=== PATIENT | female | born 1940 | race Caucasian/White ===

== ENCOUNTER 2016-12-12 15:24 | Observation (INO) | payer OTHER ==
[2016-12-12 15:31] VITALS: BMI 34.7
--- NOTE | 2016-12-12 15:49 | PDOC ---
History of Present Illness - History of Present Illness Initial Comments: 12/12/16 16:23 The patient is a 76 year old female, [place] speaking, with a significant past medical history of hypertension, GERD, migraines, and depression who presents to the emergency department with daughters for 10 days of persistent fevers ( Tmax 103.8 today), productive cough, dyspnea, and generalized weakness. She reports her cough is productive of white sputum. As per the patients nurse aide , the patient fainted and lost consciousness in the bathroom today. As per the patients daughters, she has been wearing diapers this week because the patient reports being unable to control her bladder when she coughs. The patients family also reports hematuria, but states she has been drinking a lot of beet juice. The patient reports feeling short of breath after coughing. She also states her entire body feels weak to the point where she can hardly move her extremities. She states she was diagnosed with bronchitis 2 weeks ago. She reports good appetite. She reports drinking plenty of fluids. She denies chest pain, headache and dizziness. She denies chills, nausea, vomit, diarrhea and constipation. She denies dysuria, frequency, urgency. Allergies: codeine Past surgical history: bilateral knee replacement Social history: Pt denies toxic habits <Nighat Kapoor - Last Filed: 12/12/16 16:23> - General History Source: Patient, Family Exam Limitations: No Limitations <Simona Estes - Last Filed: 12/12/16 18:41> - General Chief Complaint: Weakness Stated Complaint: NEAR SYNCOPE, FEVER, weakness Time Seen by Provider: 12/12/16 15:37 Past History <Nighat Kapoor - Last Filed: 12/12/16 16:23> - Past Medical History Anemia: No Asthma: No Cancer: No Cardiac Disorders: No CVA: No COPD: No CHF: No Dementia: No Diabetes: No GI Disorders: Yes (acid reflux) Disorders: No HTN: Yes Hypercholesterolemia: No HIV: Yes Liver Disease: No Suicide Attempt (Hx): No Seizures: No Thyroid Disease: No - Surgical History Abdominal Surgery: No Appendectomy: No Cardiac Surgery: No Cholecystectomy: No Lung Surgery: No Neurologic Surgery: No Orthopedic Surgery: Yes (bilateral knee replacement) - Immunization History Immunization Up to Date: Yes - Psycho/Social/Smoking Cessation Hx Anxiety: No Suicidal Ideation: No Smoking History: Never smoked Have you smoked in the past 12 months: No If you are a former smoker, when did you quit?: 1980 Information on smoking cessation initiated: No Hx Alcohol Use: No Drug/Substance Use Hx: No Substance Use Type: None Hx Substance Use Treatment: No <FranklynSimona - Last Filed: 12/12/16 18:41> - Past Medical History Allergies/Adverse Reactions: Allergies Allergy/AdvReac Type Severity Reaction Status Date / Time codeine Allergy Verified 12/12/16 15:31 Home Medications: Ambulatory Orders Losartan/Hydrochlorothiazide [Losartan-Hctz 100-25 mg Tab] 1 each PO DAILY 11/05 Acetaminophen [Extra Strength Non-Aspirin] 500 mg PO Q4HWA PRN 12/12/16 Aspirin [Aspirin EC] 81 mg PO DAILY 12/12/16 Celecoxib [Celebrex -] 200 mg PO PRN 12/12/16 Ibuprofen [Motrin -] 400 mg PO QID PRN 12/12/16 Review of Systems - Review of Systems Able to Perform ROS?: Yes Comments:: 12/12/16 16:23 CONSTITUTIONAL: (+) diffuse body weakness and fever, Absent: no chills, no fatigue EYES: Absent: visual changes ENT: Absent: ear pain, no sore throat CARDIOVASCULAR: Absent: chest pain, no palpitations RESPIRATORY: (+) cough, SOB GASTROINTESTINAL: Absent: abdominal pain, no nausea, no vomiting, no constipation, no diarrhea GENITOURINARY: (+) hematuria Absent: dysuria, no frequency, MUSCULOSKELETAL: Absent: back pain, no arthralgia, no myalgia SKIN: Absent: rash NEURO: Absent: headache <Nighat Kapoor - Last Filed: 12/12/16 16:23> *Physical Exam - Vital Signs Last Vital Signs Temp Pulse Resp BP Pulse Ox 98.5 F 85 18 124/71 98 12/12/16 15:29 12/12/16 15:29 12/12/16 15:29 12/12/16 15:29 12/12/16 15:29 - Physical Exam Comments: 12/12/16 16:24 GENERAL: The patient is in no acute distress. HEAD: Normal with no signs of trauma. EYES: PERRLA, EOMI, sclera anicteric, conjunctiva clear. ENT: Ears normal, nares patent, oropharynx clear without exudates. Moist mucous membranes. NECK: Normal range of motion, supple without lymphadenopathy, JVD, or masses. LUNGS: Breath sounds equal, clear to auscultation bilaterally. No wheezes, and no crackles. HEART:Regular rate and rhythm, normal S1 and S2 without murmur, rub or gallop. ABDOMEN: Soft, nontender, normoactive bowel sounds. No guarding, no rebound. No masses palpable. EXTREMITIES: Normal range of motion, no edema. No clubbing or cyanosis. No erythema, or tenderness. NEUROLOGICAL: Cranial nerves II through XII grossly intact. Normal speech. No focal neurological deficits. MUSCULOSKELETAL: Back non-tender to palpation, no CVA tenderness SKIN: Warm, Dry, normal turgor, no rashes or lesions noted. <Nighat Kapoor - Last Filed: 12/12/16 16:23> - Vital Signs Last Vital Signs Temp Pulse Resp BP Pulse Ox 98.5 F 85 18 124/71 98 12/12/16 15:29 12/12/16 15:29 12/12/16 15:29 12/12/16 15:29 12/12/16 15:29 <Simona Estes - Last Filed: 12/12/16 18:41> Heart Score/ECG Review #1 ECG reviewed & interpreted by me at: 16:48 General ECG Interpretation: Sinus Rhythm, Normal Rate, Normal Intervals, No acute ischemic changes <Simona Estes - Last Filed: 12/12/16 18:41> ED Treatment Course - LABORATORY CBC & Chemistry Diagram: 12/12/16 16:54 12/12/16 16:54 <Simona Estes - Last Filed: 12/12/16 18:41> Medical Decision Making - Medical Decision Making 12/12/16 15:49 A portion of this note was documented by scribe services under my direction. I have reviewed the details of the note, within reason, and agree with the documentation with the following case summary and management plan written by me. Nursing documentation reviewed and incorporated into medical decision making 12/12/16 18:34 This is a 76 yo F with a history of HTN presenting with her family due to cough , weakness Pt has been ill for the past 10 days Was seen by her PMD who did not start abx Pt has had temps of 103 intermittently Unable to tolerate po No vomiting No diarrhea No abdominal pain chest pain with coughing On examination: No wheezing No stridor No rhonchi RRR No abd tenderness to palpation Will do labs Will do CXR Will re assess 12/12/16 18:40 Laboratory Tests 03/18/16 12/12/16 12/12/16 19:52 16:54 16:54 WBC 4.0 4.9 Hgb 10.8 10.4 L Hct 31.9 L 31.0 L Plt Count 202 218 INR 1.11 VBG pH POC VBG pCO2 POC VBG pO2 Mixed VBG HCO3 Sodium Potassium Chloride Carbon Dioxide Anion Gap BUN Creatinine Random Glucose Alkaline Phosphatase Creatine Kinase CK-MB (CK-2) Troponin I 12/12/16 12/12/16 16:54 17:00 WBC Hgb Hct Plt Count INR VBG pH 7.40 POC VBG pCO2 48.0 POC VBG pO2 52.3 H Mixed VBG HCO3 29.0 H Sodium 128 L Potassium 4.4 Chloride 91 L Carbon Dioxide 32 Anion Gap 5 L BUN 22 H D Creatinine 0.8 Random Glucose 81 D Alkaline Phosphatase 135 H Creatine Kinase 298 H D CK-MB (CK-2) 2.940 Troponin I < 0.02 CXR: no obvious consolidation Will continue IV hydration Saline neb given pt did not tolerate this as it made her chest more tight Pt family requesting Albuterol neb Case reviewed with Dr. Gomez Will place on observation <Simona Estes - Last Filed: 12/12/16 18:41> *DC/Admit/Observation/Transfer - Attestations Scribe Attestion: 12/12/16 16:24 Documentation prepared by Nighat Kapoor, acting as medical educator for Simona Estes MD <Nighat Kapoor - Last Filed: 12/12/16 16:23> - Discharge Dispostion Admit: Yes <Simona Estes - Last Filed: 12/12/16 18:41> Diagnosis at time of Disposition: Weakness, Hyponatremia Fever Qualifiers: Fever type: due to other condition Qualified Code(s): R50.81 - Fever presenting with conditions classified elsewhere - Discharge Dispostion Condition at time of disposition: Stable
[2016-12-12 17:16] LABS: VENOUS PH 7.4 (7.32-7.42)
[2016-12-12 17:17] LABS: BASOPHIL 0.5 % (0-2.0); EOSINOPHIL 3.6 % (0-4.5); MCH 30.2 pg (25.7-33.7); MCHC 33.5 g/dl (32.0-36.0); MEAN CELL VOLUME 90.1 fl (80-96); MEAN PLT VOLUME 7.3 fl (7.5-11.1); NEUTROPHILS 63.6 % (42.8-82.8); PLATELET COUNT 218 K/MM3 (134-434); RDW 14.9 % (11.6-15.6); WHITE BLOOD COUNT 4.9 K/mm3 (4.0-10.0)
[2016-12-12 17:25] LABS: INR 1.11 (0.82-1.09); PROTHROMBIN TIME (PATIENT) 12.2 SEC (9.98-11.88)
[2016-12-12 17:27] LABS: ACTIVATED PTT 34.9 SECONDS (26.9-34.4)
[2016-12-12 17:37] LABS: ALBUMIN 3.6 g/dl (3.4-5.0); ANION GAP 5 (8-16); BILIRUBIN,TOTAL 0.3 mg/dL (0.2-1.0); CALCIUM 8.5 mg/dL (8.5-10.1); CO2 32 mmol/L (21-32); CREATININE 0.8 mg/dL (0.55-1.02); GLUCOSE,RANDOM 81 mg/dL (74-106); SGOT/AST 27 U/L (15-37); SGPT/ALT 21 U/L (12-78); TOT PROT 7.2 g/dl (6.4-8.2)
[2016-12-12 17:40] LABS: ALK PHOS 135 U/L (45-117); TROPONIN I < 0.02 ng/ml (0.00-0.05)
[2016-12-12] MEDS ORDERED: ALBUTEROL SO4 0.083% IH SOL 2.5 MG/3 ML VIAL.NEB. NEB ONE ×2 (17:59→18:29)
[2016-12-12] MEDS ORDERED: SODIUM CHLORIDE 1,000 ML IV ONE (19:18)
[2016-12-12] MEDS ORDERED: SODIUM CHLORIDE 1,000 ML IV STA (19:19)
[2016-12-12 19:31] LABS: URINE APPEARANCE CLEAR; URINE BILIRUBIN NEGATIVE (NEGATIVE); URINE BLOOD NEGATIVE (NEGATIVE); URINE COLOR LTYELLOW; URINE GLUCOSE (UA) NEGATIVE (NEGATIVE); URINE KETONE NEGATIVE (NEGATIVE); URINE LEUK ESTERASE NEGATIVE (NEGATIVE); URINE NITRITE NEGATIVE (NEGATIVE); URINE PROTEIN NEGATIVE (NEGATIVE); URINE UROBILINOGEN NEGATIVE E.U./dl (0.2-1.0)
--- NOTE | 2016-12-12 21:03 | HP ---
CHIEF COMPLAINT: fever, cough PCP: Luigi HISTORY OF PRESENT ILLNESS: This is a 76 year old female with a past medical history of HTN, migraines, depression, hiatal hernia who presented with a 10 day history of fever associated with productive cough (white phlegm), dyspnea and generalized weakness. Pt denies chest pain, abdominal pain, nausea and vomiting. Reports some constipation. Daughter reports that mother has migraines almost daily and takes fiorecet daily for them. Pt denies any headache at present. ER course was notable for: (1) WBC 4.9 (2) sodium 128 Recent Travel: pt denies PAST MEDICAL HISTORY: HTN migraines depression hiatal hernia PAST SURGICAL HISTORY: R TKR Social History: Smoking: Pt denies Alcohol: pt denies Drugs: pt denies Family History: Mother age 75 "Heart" Father age 76 "heart" sister with DM daughter with DM, HTN daughter with HTN son , cirrhosis-"bad injection" Allergies codeine Allergy (Verified 12/12/16 15:31) HOME MEDICATIONS: 3 Medication Instructions Recorded Losartan/Hydrochlorothiazide 1 each PO DAILY 11/05/14 [Losartan-Hctz 100-25 mg Tab] Acetaminophen [Extra Strength 500 mg PO Q4HWA PRN 12/12/16 Non-Aspirin] Aspirin [Aspirin EC] 81 mg PO DAILY 12/12/16 Celecoxib [Celebrex -] 200 mg PO PRN 12/12/16 Ibuprofen [Motrin -] 400 mg PO QID PRN 12/12/16 Omeprazole 20mg daily REVIEW OF SYSTEMS CONSTITUTIONAL: Present: fever, generalized weakness Absent: chills, diaphoresis, malaise, loss of appetite, weight change HEENT: Absent: rhinorrhea, nasal congestion, throat pain, throat swelling, difficulty swallowing, mouth swelling, ear pain, eye pain, visual changes CARDIOVASCULAR: Absent: chest pain, syncope, palpitations, irregular heart rate, lightheadedness , peripheral edema RESPIRATORY: Present: cough, shortness of breath Absent: wheezing, stridor, hemoptysis GASTROINTESTINAL: Absent: abdominal pain, abdominal distension, nausea, vomiting, diarrhea, constipation, melena, hematochezia GENITOURINARY: Absent: dysuria, frequency, urgency, hesitancy, hematuria, flank pain, genital pain MUSCULOSKELETAL: Absent: myalgia, arthralgia, joint swelling, back pain, neck pain SKIN: Absent: rash, itching, pallor HEMATOLOGIC/IMMUNOLOGIC: Absent: easy bleeding, easy bruising, lymphadenopathy, frequent infections ENDOCRINE: Absent: unexplained weight gain, unexplained weight loss, heat intolerance, cold intolerance NEUROLOGIC: Absent: headache, focal weakness or paresthesias, dizziness, unsteady gait, seizure, mental status changes, bladder or bowel incontinence PSYCHIATRIC: Absent: anxiety, depression, suicidal or homicidal ideation, hallucinations. PHYSICAL EXAMINATION Vital Signs - 24 hr 3 12/12/16 12/12/16 12/12/16 15:29 18:41 19:24 Temperature 98.5 F 98.3 F 98 F Pulse Rate 85 90 Pulse Rate [ 87 Left] Respiratory 18 18 17 Rate Blood Pressure 124/71 122/58 Blood Pressure 130/88 [Left Arm] O2 Sat by Pulse 98 98 98 Oximetry (%) GENERAL: Awake, alert, and fully oriented, in no acute distress. HEAD: Normal with no signs of trauma. EYES: Pupils equal, round and reactive to light, extraocular movements intact, sclera anicteric, conjunctiva clear. No lid lag. EARS, NOSE, THROAT: Ears normal, nares patent, oropharynx clear without exudates. Moist mucous membranes. NECK: Normal range of motion, supple without lymphadenopathy, JVD, or masses. LUNGS: Breath sounds equal, clear to auscultation bilaterally. No wheezes, and no crackles. No accessory muscle use. HEART: Regular rate and rhythm, normal S1 and S2 without murmur, rub or gallop. ABDOMEN: Soft, nontender, not distended, normoactive bowel sounds, no guarding, no rebound, no masses. No hepatomegaly or splenomegaly. MUSCULOSKELETAL: Normal range of motion at all joints. No bony deformities or tenderness. No CVA tenderness. UPPER EXTREMITIES: 2+ pulses, warm, well-perfused. No cyanosis. No clubbing. No peripheral edema. LOWER EXTREMITIES: 2+ pulses, warm, well-perfused. No calf tenderness. No peripheral edema. NEUROLOGICAL: Cranial nerves II-XII intact. Normal speech. Normal gait. PSYCHIATRIC: Cooperative. Good eye contact. Appropriate mood and affect. SKIN: Warm, dry, normal turgor, no rashes or lesions noted, normal capillary refill. Laboratory Results - last 24 hr 3 12/12/16 12/12/16 12/12/16 12/12/16 16:49 16:54 16:54 20:00 WBC 4.9 RBC 3.44 L Hgb 10.4 L Hct 31.0 L MCV 90.1 MCHC 33.5 RDW 14.9 Plt Count 218 MPV 7.3 L Neutrophils % 63.6 Lymphocytes % 18.1 D Monocytes % 14.2 H Eosinophils % 3.6 Basophils % 0.5 INR 1.11 PTT (Actin FS) 34.9 H VBG pH POC VBG pCO2 POC VBG pO2 Mixed VBG HCO3 Sodium Potassium Chloride Carbon Dioxide Anion Gap BUN Creatinine Creat Clearance w eGFR Random Glucose Lactic Acid 0.7 0.8 Calcium Total Bilirubin AST ALT Alkaline Phosphatase Creatine Kinase CK-MB (CK-2) Troponin I Total Protein Albumin Urine Color Urine Appearance Urine pH Urine Protein Urine Glucose (UA) Urine Ketones Urine Blood Urine Nitrite Urine Bilirubin Urine Urobilinogen Ur Leukocyte Esterase Blood Type Antibody Screen 3 12/12/16 12/12/16 12/12/16 16:54 16:55 17:00 WBC RBC Hgb Hct MCV MCHC RDW Plt Count MPV Neutrophils % Lymphocytes % Monocytes % Eosinophils % Basophils % INR PTT (Actin FS) VBG pH 7.40 POC VBG pCO2 48.0 POC VBG pO2 52.3 H Mixed VBG HCO3 29.0 H Sodium 128 L Potassium 4.4 Chloride 91 L Carbon Dioxide 32 Anion Gap 5 L BUN 22 H D Creatinine 0.8 Creat Clearance w eGFR > 60 Random Glucose 81 D Lactic Acid Calcium 8.5 Total Bilirubin 0.3 D AST 27 D ALT 21 D Alkaline Phosphatase 135 H Creatine Kinase 298 H D CK-MB (CK-2) 2.940 Troponin I < 0.02 Total Protein 7.2 Albumin 3.6 Urine Color Urine Appearance Urine pH Urine Protein Urine Glucose (UA) Urine Ketones Urine Blood Urine Nitrite Urine Bilirubin Urine Urobilinogen Ur Leukocyte Esterase Blood Type O POSITIVE Antibody Screen Negative 3 12/12/16 12/12/16 19:24 20:00 Lactic Acid 0.8 Urine Color Ltyellow Urine Appearance Clear Urine pH 7.0 Urine Protein Negative Urine Glucose (UA) Negative Urine Ketones Negative Urine Blood Negative Urine Nitrite Negative Urine Bilirubin Negative Urine Urobilinogen Negative Ur Leukocyte Esterase Negative CXR read by me, no obvious infiltrates or effusions. ASSESSMENT/PLAN: 76yF with PMH HTN, migraines, depression, hiatal hernia presented to the ED with a 10 day history of cough and fever. She was found to be hyponatremic and is being admitted for observation. bronchitis - prolonged course, but no obvious pneumonia on xray - will treat with zithromax - albuterol nebs PRN. - if fever persists would get CT scan Hyponatremia - likely due to hypovolemia as pt has not been eating or drinking well. - cont NS@100cc/hr HTN - cont home hyzaar, changed to formulary losartan and hydrochlorothiazide separately. hiatal hernia - home omeprazole changed to formulary protonix Migraine - dc fiorecet, monitor for acute migraine and tx with ketorolac, benadryl and reglan - family given contact info for neurology as outpatient DVT PPX - not indicated, expected LOS <48h FEN - NS @ 100cc/hr - repeat BMP at 12am. - low sodium diet as tolerated Dispo: Pt currently requires inpatient observation of her emergent condition. Visit type - Emergency Visit Emergency Visit: Yes ED Registration Date: 12/12/16 Care time: The patient presented to the Emergency Department on the above date and was hospitalized for further evaluation of their emergent condition. - New Patient This patient is new to me today: Yes Date on this admission: 12/12/16 - Critical Care Critical Care patient: No
[2016-12-12] MEDS ORDERED: AZITHROMYCIN IVPB 250 ML IVPB ONE (21:33)
[2016-12-12] MEDS: POLYETHYLENE GLYCOL 3350 119 GM BTL PO SCH (21:52)
[2016-12-12] MEDS ORDERED: ALBUTEROL SO4 0.083% IH SOL 2.5 MG/3 ML VIAL.NEB. NEB PRN (22:12)
[2016-12-12] MEDS: SODIUM CHLORIDE 1,000 ML IV SCH (22:43)
[2016-12-13] MEDS: guaiFENesin 200 MG/10 ML 10 ML UNIT-DOSE CUPS PO PRN ×2 (00:04→08:30)
[2016-12-13 06:54] LABS: BASOPHIL 0.4 % (0-2.0); EOSINOPHIL 3.9 % (0-4.5); MCH 30.7 pg (25.7-33.7); MEAN CELL VOLUME 90.5 fl (80-96); MEAN PLT VOLUME 6.9 fl (7.5-11.1); NEUTROPHILS 62.2 % (42.8-82.8); PLATELET COUNT 186 K/MM3 (134-434); RDW 14.8 % (11.6-15.6); WHITE BLOOD COUNT 4.9 K/mm3 (4.0-10.0)
[2016-12-13 07:20] LABS: ANION GAP 6 (8-16); CO2 32 mmol/L (21-32); CREATININE 0.7 mg/dL (0.55-1.02); GLUCOSE,RANDOM 97 mg/dL (74-106); MAGNESIUM 1.9 mg/dL (1.8-2.4); PHOSPHOROUS 3.3 mg/dL (2.5-4.9)
[2016-12-13] MEDS ORDERED: PATIENT'S OWN MEDICATION (NON-FORMULARY) (Losartan/Hydrochlorothiazide [Losartan-Hctz 100- PO SCH (10:00)
[2016-12-13] MEDS: SODIUM CHLORIDE 1,000 ML IV SCH ×2 (10:25→22:51)
[2016-12-13] MEDS: PANTOPRAZOLE 20 MG TABLET (FP) PO SCH (10:26)
[2016-12-13] MEDS: ASPIRIN COATED 81 MG TABLET.EC PO SCH (10:26)
[2016-12-13] MEDS: LOSARTAN POTASSIUM 50 MG TABLET (FP) PO SCH (10:26)
[2016-12-13] MEDS: HYDROCHLOROTHIAZIDE 25 MG TABLET (FP) PO SCH (10:26)
[2016-12-13] MEDS: POLYETHYLENE GLYCOL 3350 119 GM BTL PO SCH (10:26)
--- NOTE | 2016-12-13 10:42 | EKG ---
Test Reason : Blood Pressure : / mmHG Vent. Rate : 074 BPM Atrial Rate : 074 BPM P-R Int : 148 ms QRS Dur : 076 ms QT Int : 378 ms P-R-T Axes : 063 033 049 degrees QTc Int : 419 ms POOR DATA QUALITY, INTERPRETATION MAY BE ADVERSELY AFFECTED NORMAL SINUS RHYTHM NORMAL ECG WHEN COMPARED WITH ECG OF 18-MAR-2016 21:52, NO SIGNIFICANT CHANGE WAS FOUND Confirmed by EMIGDIO SALTER, REYNALDO ([id number]) on 12/13/2016 10:42:26 AM Referred By: Confirmed By:REYNALDO BEAL MD
[2016-12-13] MEDS ORDERED: DOCUSATE SODIUM 100 MG CAPSULE (FP) PO ONE (17:16)
[2016-12-13] MEDS ORDERED: ACETAMINOPHEN 325 MG TABLET (FP) PO PRN (17:17)
[2016-12-13] MEDS ORDERED: CELECOXIB 200 MG CAPSULE PO SCH (17:30)
--- NOTE | 2016-12-13 17:56 | PN ---
Physical Exam: SUBJECTIVE: Patient seen and examined at the bedside. States she has been feeling very weak, depressed at home since the passing of her 3 years ago. She states she is not motivated to do anything at home since she is used to only caring for him. She denies any suicidal ideation, just depressed and feels lost. She admits to not eating or drinking enough fluids. OBJECTIVE: Chronic dry cough, otherwise appears well Vitals stable, afebrile, in no acute distress Hyponatremia improving Likely discharge tomorrow, patient aware and in agreement She will need follow up for her depressed mood by an outpatient psychiatrist that can be referred by her PCP Will check TSH and iron studies as hmg slightly low Will have PT evluate patient, pre and post respiratory prior to d/c Daughter Bonnie called to update on her mother's status, no voice mail left by science writer, will attempt tomorrow Vital Signs Period Temp Pulse Resp BP Sys/Briceno Pulse Ox Last 24 Hr 98 F-98.9 F 73-90 17-22 119-140/55-88 98-99 GENERAL: The patient is awake, alert, and fully oriented, in no acute distress. HEAD: Normal with no signs of trauma. EYES: PERRL, extraocular movements intact, sclera anicteric, conjunctiva clear. No ptosis. ENT: Ears normal, nares patent, oropharynx clear without exudates, moist mucous membranes. NECK: Trachea midline, full range of motion, supple. LUNGS: Breath sounds equal, diminished, no wheezing, has chronid dry cough HEART: Regular rate and rhythm, S1, S2 without murmur, rub or gallop. ABDOMEN: Soft, nontender, nondistended, normoactive bowel sounds, no guarding, no rebound, no hepatosplenomegaly, no masses. EXTREMITIES: 2+ pulses, warm, well-perfused, no edema. NEUROLOGICAL: Normal speech, gait not observed. PSYCH: Normal mood, normal affect. SKIN: Warm, dry, normal turgor, no rashes or lesions noted Laboratory Results - last 24 hr 12/12/16 12/12/16 12/12/16 19:24 20:00 21:15 WBC RBC Hgb Hct MCV MCHC RDW Plt Count MPV Neutrophils % Lymphocytes % Monocytes % Eosinophils % Basophils % Sodium Potassium Chloride Carbon Dioxide Anion Gap BUN Creatinine Random Glucose Lactic Acid 0.8 Calcium Phosphorus Magnesium Urine Color Ltyellow Urine Appearance Clear Urine pH 7.0 Ur Specific [place] 1.015 Urine Protein Negative Urine Glucose (UA) Negative Urine Ketones Negative Urine Blood Negative Urine Nitrite Negative Urine Bilirubin Negative Urine Urobilinogen Negative Ur Leukocyte Esterase Negative Blood Type O POSITIVE 12/13/16 12/13/16 05:35 05:35 WBC 4.9 RBC 3.11 L Hgb 9.6 L Hct 28.2 L MCV 90.5 MCHC 34.0 RDW 14.8 Plt Count 186 MPV 6.9 L Neutrophils % 62.2 Lymphocytes % 19.3 Monocytes % 14.2 H Eosinophils % 3.9 Basophils % 0.4 Sodium 132 L Potassium 4.5 Chloride 94 L Carbon Dioxide 32 Anion Gap 6 L BUN 14 D Creatinine 0.7 Random Glucose 97 Lactic Acid Calcium 8.0 L Phosphorus 3.3 D Magnesium 1.9 Urine Color Urine Appearance Urine pH Ur Specific [place] Urine Protein Urine Glucose (UA) Urine Ketones Urine Blood Urine Nitrite Urine Bilirubin Urine Urobilinogen Ur Leukocyte Esterase Blood Type Active Medications Generic Name Dose Route Start Last Admin Trade Name Freq PRN Reason Stop Dose Admin Acetaminophen 650 mg 12/13/16 17:17 Tylenol - PO Q4H PRN FEVER OR PAIN Albuterol Sulfate 1 amp 12/12/16 22:12 Ventolin 0.083% Nebulizer Soln - NEB Q6H PRN SHORT OF BREATH/WHEEZING Aspirin 81 mg 12/13/16 10:00 12/13/16 10:26 Ecotrin - PO 81 mg DAILY WILLIAM Administration Celecoxib 200 mg 12/13/16 17:30 Celebrex - PO PRN WILLIAM Docusate Sodium 100 mg 12/13/16 22:00 Colace - PO BID WILLIAM Guaifenesin 10 ml 12/12/16 23:35 12/13/16 08:30 Robitussin - PO 10 ml Q4H PRN Administration COUGH Hydrochlorothiazide 25 mg 12/13/16 10:00 12/13/16 10:26 Hctz - PO 25 mg DAILY WILLIAM Administration Sodium Chloride 1,000 mls @ 100 mls/hr 12/12/16 22:15 12/13/16 10:25 Normal Saline - IV 100 mls/hr ASDIR WILLIAM Administration Losartan Potassium 100 mg 12/13/16 10:00 12/13/16 10:26 Cozaar - PO 100 mg DAILY WILLIAM Administration Pantoprazole Sodium 20 mg 12/13/16 10:00 12/13/16 10:26 Protonix - PO 20 mg DAILY WILLIAM Administration Polyethylene Glycol 17 gm 12/12/16 21:00 12/13/16 10:26 Miralax (For Daily Use) - PO 17 grams DAILY WILLIAM Administration ASSESSMENT/PLAN: Patient is a 76 year old female with a significant past medical history of hypertension, GERD, migraines, and depression who presents to the emergency department on 12/12/2016 for 10 days of subjective persistent fevers of 103F with a productive cough, dyspnea, and generalized weakness. On admission, patient states that her cough is productive of white sputum. As per ED notes, patient had an episode of weakness where she reportedly fainted and lost consciousness in the bathroom. In the ER she was found to be hyponatremic @128 Imaging: Chest xray 12/12/2016: No acute pathology since study of 03/18/2016. EKG 12/12/2016: NSR with no significant changes since previous EKG of 03/16/2017 Pulmonary: Bronchitis - acute Assessment/Plan: Patient had a dry cough on exam, chest xray shows no acute pathology She remains afebrile, WBC stable She was given Azithomax 500mg IV x 1 on admission Will convert to Zithromax 500mg PO Tolerating room air, no dyspnea on exam, stable oxygen sats on room air Albuterol as needed, but she is not wheezing Monitor respiratory status Cardiology: Hypertension - controlled Assessment/Plan: Continue home medications Electrolyte Imbalance Hyponatremia - improving Assessment/Plan: Patient reports depression with a poor PO intake NA today 132, improving with IVF, continue IVF and repeat CMP in a.m. Neuro: Migraines - chronic Assessment/Plan: follow up with neurology as outpatient F.E.N. Fluids: NS @100cc/hr Electrolytes: hyponatremia resolving Nutrition: low sodium, will add Ensure supplements Disposition: Likely discharge tomorrow. Full Code. Visit type - Emergency Visit Emergency Visit: Yes ED Registration Date: 12/12/16 Care time: The patient presented to the Emergency Department on the above date and was hospitalized for further evaluation of their emergent condition. - New Patient This patient is new to me today: Yes Date on this admission: 12/13/16 - Critical Care Critical Care patient: No - Discharge Referral Referred to [facility] No
[2016-12-13] MEDS: AZITHROMYCIN 250 MG TABLET (FP) PO SCH (18:41)
[2016-12-13] MEDS: DOCUSATE SODIUM 100 MG CAPSULE (FP) PO SCH (21:38)
[2016-12-14 07:37] LABS: BASOPHIL 0.9 % (0-2.0); EOSINOPHIL 2.9 % (0-4.5); MCH 30.7 pg (25.7-33.7); MCHC 33.6 g/dl (32.0-36.0); MEAN CELL VOLUME 91.4 fl (80-96); MEAN PLT VOLUME 7.4 fl (7.5-11.1); NEUTROPHILS 69.1 % (42.8-82.8); PLATELET COUNT 217 K/MM3 (134-434); RDW 14.7 % (11.6-15.6); WHITE BLOOD COUNT 5.1 K/mm3 (4.0-10.0)
[2016-12-14 08:47] LABS: ALBUMIN 3.7 g/dl (3.4-5.0); ALK PHOS 132 U/L (45-117); ANION GAP 8 (8-16); BILIRUBIN,TOTAL 0.4 mg/dL (0.2-1.0); CALCIUM 8.8 mg/dL (8.5-10.1); CO2 28 mmol/L (21-32); CREATININE 0.6 mg/dL (0.55-1.02); GLUCOSE,RANDOM 96 mg/dL (74-106); SGOT/AST 29 U/L (15-37); SGPT/ALT 23 U/L (12-78); THYROID STIMULATING HORMONE 1.57 uIU/ml (0.358-3.74); TOT PROT 7.4 g/dl (6.4-8.2)
[2016-12-14] MEDS: SODIUM CHLORIDE 1,000 ML IV SCH (08:52)
[2016-12-14] MEDS ORDERED: MULTIVITAMINS (DAILY MVI) TABLET (FP) PO SCH (10:00)
[2016-12-14] MEDS ORDERED: FERROUS SO4 325 MG TABLET (FP) PO SCH (10:00)
[2016-12-14] MEDS ORDERED: PT OWN MED DRAWER 7, Y5N ONE (10:31)
[2016-12-14] MEDS: AZITHROMYCIN 250 MG TABLET (FP) PO SCH (10:32)
[2016-12-14] MEDS: LOSARTAN POTASSIUM 50 MG TABLET (FP) PO SCH (10:33)
[2016-12-14] MEDS: PANTOPRAZOLE 20 MG TABLET (FP) PO SCH (10:33)
[2016-12-14] MEDS: HYDROCHLOROTHIAZIDE 25 MG TABLET (FP) PO SCH (10:33)
[2016-12-14] MEDS: DOCUSATE SODIUM 100 MG CAPSULE (FP) PO SCH (10:33)
[2016-12-14] MEDS: ASPIRIN COATED 81 MG TABLET.EC PO SCH (10:33)
[2016-12-14] MEDS: POLYETHYLENE GLYCOL 3350 119 GM BTL PO SCH (10:34)
--- NOTE | 2016-12-14 11:01 | DS ---
Physical Exam: SUBJECTIVE: Patient seen and examined. She states she had a very large BM last night and feels better. She denies any shortness of breath, or chest pain. She is ambulating in room with cane, steady gait. Denies shortness of breath. OBJECTIVE: Chronic dry cough, otherwise appears well Vitals stable, afebrile, in no acute distress Hyponatremia improving 128>133 Discharge today. Spoke to patient's daughter Bonnie and made her aware of discharge plan. Patient has an appointment with her PCP Dr. Fox Meyers on December 19 @ 11:30. I spoke to lime filter operator Katie and asked her to make Dr. Meyers aware that patient may need a psychologist referral for depression after of her 3 years ago. TSH within normal limits, hmg/hmt stable, B12 levels elevated Vital Signs Period Temp Pulse Resp BP Sys/Briceno Pulse Ox Last 24 Hr 98.0 F-98.9 F 73-82 18-29 123-142/55-75 PHYSICAL EXAM GENERAL: The patient is awake, alert, and fully oriented, in no acute distress. HEAD: Normal with no signs of trauma. EYES: PERRL, extraocular movements intact, sclera anicteric, conjunctiva clear. No ptosis. ENT: Ears normal, nares patent, oropharynx clear without exudates, moist mucous membranes. NECK: Trachea midline, full range of motion, supple. LUNGS: Breath sounds equal, diminished, no wheezing, has chronic dry cough HEART: Regular rate and rhythm, S1, S2 without murmur, rub or gallop. ABDOMEN: Soft, nontender, nondistended, normoactive bowel sounds, no guarding, no rebound, no hepatosplenomegaly, no masses. EXTREMITIES: 2+ pulses, warm, well-perfused, no edema. NEUROLOGICAL: Normal speech, gait not observed. PSYCH: Normal mood, normal affect. SKIN: Warm, dry, normal turgor, no rashes or lesions noted LABS Laboratory Results - last 24 hr 12/14/16 12/14/16 12/14/16 06:10 06:10 06:10 WBC 5.1 RBC 3.55 L Hgb 10.9 D Hct 32.5 D MCV 91.4 MCHC 33.6 RDW 14.7 Plt Count 217 MPV 7.4 L Neutrophils % 69.1 Lymphocytes % 16.7 Monocytes % 10.4 H Eosinophils % 2.9 Basophils % 0.9 Retic Count Sodium 133 L Potassium 4.5 Chloride 97 L Carbon Dioxide 28 Anion Gap 8 BUN 8 D Creatinine 0.6 Creat Clearance w eGFR > 60 Random Glucose 96 Calcium 8.8 Ferritin 29.490 Cancelled Total Bilirubin 0.4 D AST 29 ALT 23 Alkaline Phosphatase 132 H Total Protein 7.4 Albumin 3.7 Vitamin B12 TSH 1.57 12/14/16 12/14/16 06:10 06:10 WBC RBC Hgb Hct MCV MCHC RDW Plt Count MPV Neutrophils % Lymphocytes % Monocytes % Eosinophils % Basophils % Retic Count 1.54 H Sodium Potassium Chloride Carbon Dioxide Anion Gap BUN Creatinine Creat Clearance w eGFR Random Glucose Calcium Ferritin Total Bilirubin AST ALT Alkaline Phosphatase Total Protein Albumin Vitamin B12 1637 H TSH HOSPITAL COURSE: Date of Admission:12/12/16 Date of Discharge: 12/14/16 ASSESSMENT/PLAN: Patient is a 76 year old female with a significant past medical history of hypertension, GERD, migraines, and depression who presents to the emergency department on 12/12/2016 for 10 days of subjective persistent fevers of 103F with a productive cough, dyspnea, and generalized weakness. On admission, patient states that her cough is productive of white sputum. As per ED notes, patient had an episode of weakness where she reportedly fainted and lost consciousness in the bathroom. In the ER she was found to be hyponatremic @128 Imaging: Chest xray 12/12/2016: No acute pathology since study of 03/18/2016. EKG 12/12/2016: NSR with no significant changes since previous EKG of 03/16/2017 Pulmonary: Bronchitis - improving Assessment/Plan: Patient had a dry cough on exam, chest xray shows no acute pathology She remains afebrile, WBC stable She will continue Zithromax 500mg PO until December 19, then will see her PCP for follow up Tolerating room air, no dyspnea on exam, stable oxygen sats on room air Ambulating in room, no shortness of breath Discharge home with PCP follow up, may need referral to psychologist for depression as per PCP recommendation Cardiology: Hypertension - controlled Assessment/Plan: Continue home medications Electrolyte Imbalance Hyponatremia - improving 128>133 - improving Assessment/Plan: Patient reports depression with a poor PO intake NA today 133, improved with IVF Increased free water intake at home and repeat CMP outpatient Neuro: Migraines - chronic Assessment/Plan: follow up with neurology as outpatient Disposition:Discharge today. Spoke to patient's daughter Bonnie and made her aware of discharge plan. Made patient an appointment with her PCP Dr. Fox Meyers on December 19 @ 11:30. I spoke to lime filter operator Katie and asked her to make Dr. Meyers aware that patient may need a psychologist referral for ongoing depression/grieving. Minutes to complete discharge: 45 Discharge Summary Reason For Visit: FEVER Current Active Problems Chest pain (Acute) Dehydration (Acute) Fever (Acute) Hypertension (Acute) Hyponatremia (Acute) Weakness (Acute) Condition: Stable - Instructions Diet, Activity, Other Instructions: Mrs. Smith: Have vitamin B12 levels checked You have an appointment with your Dr. Braxton on December 19 @ 11:30 a.m. Please keep the appointment and have your B12 levels checked as they were high. Please do not take any B12 supplements unless cleared by your physician. Please also have your doctor check your sodium levels as they were low when you were admitted but have improved since. Continue the antibiotics for 5 more days as prescribed (Zithromax 500mg daily for 5 more days, stop taking this medication on 12/19/2016) Recommend: Drink plenty of fluids - at least 8 cups of water per day Glucerna supplements three times per day if you are not eating well If you have any questions, please call me between the hours of 7am and 7pm. Lorraine Hayes [place] PULMONOLOGY TECHNICIAN [phone] Referrals: Fox Meyers [Primary Care Provider] - Disposition: HOME - Home Medications Comprehensive Discharge Medication List: Ambulatory Orders Losartan/Hydrochlorothiazide [Losartan-Hctz 100-25 mg Tab] 1 each PO DAILY 11/05 Acetaminophen [Extra Strength Non-Aspirin] 500 mg PO Q4HWA PRN 12/12/16 Aspirin [Aspirin EC] 81 mg PO DAILY 12/12/16 Celecoxib [Celebrex -] 200 mg PO PRN 12/12/16 Ibuprofen [Motrin -] 400 mg PO QID PRN 12/12/16 This patient is new to me today: No Emergency Visit: Yes ED Registration Date: 12/12/16 Care time: The patient presented to the Emergency Department on the above date and was hospitalized for further evaluation of their emergent condition. Critical Care patient: No - Discharge Referral Referred to [facility] No
[2016-12-14 15:49] VITALS: BP 145/72; PULSE 84; TEMP 98.4
== END 2016-12-14 18:08 | disposition home or self-care (01) ==
LOC: JER 15:24 → JERBED 18:41 → J5S 20:18
PROVIDERS: ADMIT Internal Medicine; ATTEND Nurse Practitioner Family
PROC: 3E03329 Introduction of Other Anti-infective into Peripheral Vein, Percutaneous Approach (ICD-10-PCS; principal; 2016-12-12)
PROC: 3E0337Z Introduction of Electrolytic and Water Balance Substance into Peripheral Vein, Percutaneous Approach (ICD-10-PCS; 2016-12-12)
PROC: 3E0F7GC Introduction of Other Therapeutic Substance into Respiratory Tract, Via Natural or Artificial Opening (ICD-10-PCS; 2016-12-12)
DX: R50.81 Fever presenting with conditions classified elsewhere (principal); J20.9 Acute bronchitis, unspecified; E86.0 Dehydration; R53.1 Weakness; E87.1 Hypo-osmolality and hyponatremia; I10 Essential (primary) hypertension; K21.9 Gastro-esophageal reflux disease without esophagitis; F32.9 Major depressive disorder, single episode, unspecified; Z88.6 Allergy status to analgesic agent; Z96.653 Presence of artificial knee joint, bilateral; Z79.82 Long term (current) use of aspirin; K44.9 Diaphragmatic hernia without obstruction or gangrene; G43.809 Other migraine, not intractable, without status migrainosus
CPT/HCPCS: 36415; 71010-TC; 80048; 80053; 81003; 82550; 82553; 82607; 82728; 82803; 83605; 83735; 84100; 84443; 84484; 85025; 85044; 85610; 85730; 86850; 86900; 86901; 87040; 87086; 93005; 93010; 94761; 99282-25; G0378

== ENCOUNTER 2018-07-17 11:53 | Emergency (ER) | payer OTHER ==
[2018-07-17 12:34] VITALS: BP 155/80; PULSE 76; TEMP 98.2; BMI 31.1
--- NOTE | 2018-07-17 14:54 | PDOC ---
History of Present Illness - General Chief Complaint: Redness To Affected Area Stated Complaint: LUMP IN HEAD Time Seen by Provider: 07/17/18 13:46 History Source: Patient Exam Limitations: No Limitations Past History - Travel Traveled outside of the country in the last 30 days: No Close contact w/someone who was outside of country & ill: No - Past Medical History Allergies/Adverse Reactions: Allergies Allergy/AdvReac Type Severity Reaction Status Date / Time codeine Allergy Verified 07/17/18 12:30 Home Medications: Ambulatory Orders Losartan/Hydrochlorothiazide [Losartan-Hctz 100-25 mg Tab] 1 each PO DAILY 11/05 Acetaminophen [Extra Strength Non-Aspirin] 500 mg PO Q4HWA PRN 12/12/16 Aspirin [Aspirin EC] 81 mg PO DAILY 12/12/16 Celecoxib [CeleBREX -] 200 mg PO PRN 12/12/16 Ibuprofen [Motrin -] 400 mg PO QID PRN 12/12/16 Azithromycin [Zithromax 250mg Tablets -] 500 mg PO DAILY #10 tablet MDD 2 Ferrous Sulfate [Feosol] 325 mg PO DAILY #30 tab 12/14/16 Guaifenesin [Robitussin -] 10 ml PO Q4H PRN #1 bottle 12/14/16 Losartan Potassium [Cozaar -] 100 mg PO DAILY tablet 12/14/16 Multivitamins [Multivit ([facility] Formulary)] 1 tab PO DAILY tab 12/14/16 Pantoprazole Sodium [Protonix -] 20 mg PO DAILY #30 tab 12/14/16 Polyethylene Glycol 3350 [Miralax 119 gm Btl -] 17 gm PO DAILY #1 bottle Cephalexin Monohydrate [Keflex -] 500 mg PO BID #14 capsule 07/17/18 Sulfamethoxazole/Trimethoprim [Bactrim Ds -] 1 tab PO BID #14 tablet 07/17/18 Anemia: No Asthma: No Cancer: No Cardiac Disorders: No CVA: No COPD: No CHF: No Dementia: No Diabetes: No GI Disorders: Yes (acid reflux) Disorders: No HTN: Yes Hypercholesterolemia: No Liver Disease: No Seizures: No Thyroid Disease: No - Surgical History Abdominal Surgery: No Appendectomy: No Cardiac Surgery: No Cholecystectomy: No Lung Surgery: No Neurologic Surgery: No Orthopedic Surgery: Yes (bilateral knee replacement) - Immunization History Immunization Up to Date: Yes - Suicide/Smoking/Psychosocial Hx Smoking History: Never smoked Have you smoked in the past 12 months: No If you are a former smoker, when did you quit?: 1980 Hx Alcohol Use: No Drug/Substance Use Hx: No Substance Use Type: None Hx Substance Use Treatment: No Review of Systems - Review of Systems Able to Perform ROS?: Yes Comments:: 07/17/18 14:52 CONSTITUTIONAL: Absent: fever, chills, diaphoresis, generalized weakness, malaise, loss of appetite HEENT: Absent: rhinorrhea, nasal congestion, throat pain, throat swelling, difficulty swallowing, mouth swelling, ear pain, eye pain, visual Changes CARDIOVASCULAR: Absent: chest pain, loss of consciousness, palpitations, irregular heart rate, peripheral edema RESPIRATORY: Absent: cough, shortness of breath, dyspnea with exertion, orthopnea, wheezing, stridor, hemoptysis GASTROINTESTINAL: Absent: abdominal pain, abdominal distension, nausea, vomiting, diarrhea, constipation, melena, hematochezia GENITOURINARY: Absent: dysuria, frequency, urgency, hesitancy, hematuria, flank pain, genital pain MUSCULOSKELETAL: Absent: myalgia, arthralgia, joint swelling SKIN: Absent: rash, itching, pallor HEMATOLOGIC/IMMUNOLOGIC: Absent: easy bleeding, easy bruising, lymphadenopathy, frequent infections ENDOCRINE: Absent: unexplained weight gain, unexplained weight loss, heat intolerance, cold intolerance NEUROLOGIC: Absent: headache, focal weakness or paresthesias, dizziness, unsteady gait, seizure, mental status changes, bladder or bowel incontinence PSYCHIATRIC: Absent: anxiety, depression, suicidal or homicidal ideation, hallucinations. Is the patient limited Ecuadorean proficient: No *Physical Exam - Vital Signs Last Vital Signs Temp Pulse Resp BP Pulse Ox 98.2 F 76 18 155/80 98 07/17/18 12:30 07/17/18 12:30 07/17/18 12:30 07/17/18 12:30 07/17/18 12:30 - Physical Exam Comments: 07/17/18 14:52 GENERAL: Well developed, well nourished. Awake and alert. No acute distress. HEENT: Normocephalic, atraumatic. PERRLA, EOMI. No conjunctival pallor. Sclera are non- icteric. Moist mucous membranes. Oropharynx is clear. NECK: Supple. Full ROM. No JVD. Carotid pulses 2+ and symmetric, without bruits. No thyromegaly. No lymphadenopathy. CARDIOVASCULAR: Regular rate and rhythm. No murmurs, rubs, or gallops. Distal pulses are 2+ and symmetric. PULMONARY: No evidence of respiratory distress. Lungs clear to auscultation bilaterally. No wheezing, rales or rhonchi. ABDOMINAL: Soft. Non-tender. Non-distended. No rebound or guarding. No organomegaly. Normoactive bowel sounds. MUSCULOSKELETAL Normal range of motion at all joints. No bony deformities or tenderness. No CVA tenderness. EXTREMITIES: No cyanosis. No clubbing. No edema. No calf tenderness. SKIN: Warm and dry. Normal capillary refill. No rashes. No jaundice. NEUROLOGICAL: Alert, awake, appropriate. Cranial nerves 2-12 intact. No deficits to light touch and temperature in face, upper extremities and lower extremities. No motor deficits in the in face, upper extremities and lower extremities. Normoreflexic in the upper and lower extremities. Normal speech. Toes are down- going bilaterally. Gait is normal without ataxia. PSYCHIATRIC: Cooperative. Good eye contact. Appropriate mood and affect. Moderate Sedation - Procedure Monitoring Vital Signs: Procedure Monitoring Vital Signs Temperature 98.2 F 07/17/18 12:30 Pulse Rate 76 07/17/18 12:30 Respiratory Rate 18 07/17/18 12:30 Blood Pressure 155/80 07/17/18 12:30 O2 Sat by Pulse Oximetry (%) 98 07/17/18 12:30 *DC/Admit/Observation/Transfer Diagnosis at time of Disposition: Cellulitis Qualifiers: Site of cellulitis: other site Qualified Code(s): L03.818 - Cellulitis of other sites - Discharge Dispostion Disposition: HOME Condition at time of disposition: Stable Decision to Admit order: No - Referrals Referrals: Fox Meyers [Primary Care Provider] - - Patient Instructions Printed Discharge Instructions: DI for Cellulitis -- Adult Additional Instructions: You have cellulitis. This is a skin infection. Please take the Bactrim and Keflex twice a day for one week. Please take all the antibiotics even if you feel better. You may use warm water soaks to the area. Please do this approximately 4-5 times a day. Please avoid shaving the skin around the area of redness. You may take Tylenol or Motrin as needed for pain. Return to the ED in 2 days for a wound check. Return to the emergency department if you have worsening redness, fevers, increasing pain, or have any changes in your symptoms. - Post Discharge Activity
== END 2018-07-17 15:42 | disposition home or self-care (01) ==
LOC: JER 11:53
DX: L03.811 Cellulitis of head [any part, except face] (principal); I10 Essential (primary) hypertension; K21.9 Gastro-esophageal reflux disease without esophagitis; Z96.653 Presence of artificial knee joint, bilateral
CPT/HCPCS: 99281-25

== ENCOUNTER 2019-04-29 10:00 | Emergency (ER) | payer OTHER ==
[2019-04-29 10:07] VITALS: BP 159/70; PULSE 92; TEMP 98.3; BMI 31.9
--- NOTE | 2019-04-29 10:47 | PDOC ---
Documentation entered by Campos Burger SCRIBE, acting as scribe for Frances Falcon MD. Frances Falcon MD: This documentation has been prepared by the Tao mason Daniel, SCRIBE, under my direction and personally reviewed by me in its entirety. I confirm that the documentation accurately reflects all work, treatment, procedures, and medical decision making performed by me. Attending Attestation - Resident Resident Name: Franci Moulton - ED Attending Attestation I have performed the following: I have examined & evaluated the patient, The case was reviewed & discussed with the resident, I agree w/resident's findings & plan - HPI HPI: 04/29/19 10:46 The patient is an 79 year old female with a past medical history of migraines, GERD, depression, and HTN here today for evaluation of dizziness and headache. The patient reports that she has had 4 days of dizziness and describes it as feeling week and tired. She also notes a frontal, 5-6/10, throbbing headache that was a gradual onset. She states that advil provided mild relief for her headache and feels similar to her previous migraines. Patient fever, chills. Denies chest pain, shortness of breath. Denies nausea, vomiting, diarrhea, abdominal pain. information provided with [employer] Japanese interpretation. Allergies: codeine 04/29/19 15:41 - Physicial Exam PE: 04/29/19 10:46 Agree with the resident's HPI and PE as documented in the electronic medical record. NAD, well appearing, EOMI, PERRL, nl conjunctiva, anicteric; neck supple. lungs clear, RRR, no murmur, abdomen soft nontender. no rebound, guarding. Back nontender. MADDEN x4, no focal neuro deficits. No peripheral edema. normal color for ethnicity, WWP. speech clear. 5/5 prox and distal strength, SILT in all extrem. no nystagmus. 04/29/19 15:41 - Medical Decision Making 04/29/19 10:46 Vital Signs Temp Pulse Resp BP Pulse Ox 98.3 F 92 H 18 159/70 97 04/29/19 10:03 04/29/19 10:03 04/29/19 10:03 04/29/19 10:03 04/29/19 10:03 Laboratory results are within normal limits, baseline anemia, troponin is negative so unlikely ACS/cardiac VS reviewed, wnl. appropriate. no neuro deficits. no cp or sob. labs and lytes wnl, baseline anemia CT head unremarkable, no mass/CVA or bleed, volume loss/age related changes. given analgesia, IVF, tylenol, reglan, reassess neuro intact. c/o gen weakness and dizziness. Pt to be discharged in stable condition. Patient made aware of clinical impression, treatment recommendations and disposition plan, return precautions discussed (including but not limited to new or persistent/worsening symptoms, pain, fevers, or signs of infection, chest pain, respiratory distress, inability to tolerate oral intake, dehydration, syncope, or neurologic changes) . Follow up with PMD and/or specialist as recommended, follow up information provided, take medications as instructed for duration of time. continue with supportive care, avoid triggers and precipitants. All questions answered to patient's satisfaction and expressed understanding and comfort with this. At the time of discharge, the patient is alert, clinically improved, tolerating po and verbalizes understanding of instructions, satisfied with the care received and felt comfortable with the plan. Patient does not suffer from an acute life- threatening medical condition at this time and is safe for outpatient follow- up. 04/29/19 13:05 04/29/19 13:39 04/29/19 15:41 Heart Score/ECG Review #1 ECG reviewed & interpreted by me at: 11:55 General ECG Interpretation: Sinus Rhythm, Normal Rate, Normal Intervals, No acute ischemic changes 04/29/19 12:02 EKG normal sinus rhythm at 71 bpm, no interval abnormalities, narrow QRS, ST and T wave segments and morphology normal. Nonspecific T wave abnormality in III only, no contiguous lead changes.
[2019-04-29] MEDS ORDERED: SODIUM CHLORIDE 0.9% 500 ML INFUS.BAG IV ONE (11:32)
[2019-04-29] MEDS ORDERED: ACETAMINOPHEN 1000 MG/100 ML VIAL (NON FORMULARY) IVPB ONE (11:32)
[2019-04-29] MEDS ORDERED: METOCLOPRAMIDE HCL INJECTION 10 MG/2 ML VIAL IVPB ONE (11:32)
[2019-04-29] MEDS ORDERED: METOCLOPRAMIDE HCL INJECTION 10 MG/2 ML VIAL ONE (11:33)
[2019-04-29] MEDS ORDERED: ACETAMINOPHEN INJECTION 100 ML IVPB ONE (11:33)
[2019-04-29] MEDS ORDERED: FAMOTIDINE 20 MG/50 ML IVPB 20 MG/50 ML MG IVPB ONE (11:41)
--- NOTE | 2019-04-29 11:50 | PDOC ---
History of Present Illness - General Chief Complaint: Headache Stated Complaint: DIZZINESS Time Seen by Provider: 04/29/19 10:28 - History of Present Illness Initial Comments: 04/29/19 11:42 79y/o F hx of HTN. migraines, hiatal hernia, presents to the ER with 4 days of lightheadedness accompanied by headache. Describes headaches as a throbbing pain in the front of her head 6/10 in severity. She took some Advil yesterday experiencing some temporary relief, but headache returned this morning. Denies sudden onset, pain increases gradually. Pain feels very similiar to previous migraine episodes in the past. She endorses lightheadedness, decreased appetite and reduced intake, heartburn.She denies any fevers, nausea, vomiting, fevers, chills, syncopal event, blurry vision or fall. Past History - Past Medical History Allergies/Adverse Reactions: Allergies Allergy/AdvReac Type Severity Reaction Status Date / Time codeine Allergy Verified 04/29/19 10:06 Home Medications: Ambulatory Orders Losartan/Hydrochlorothiazide [Losartan-Hctz 100-25 mg Tab] 1 each PO DAILY 11/05 Acetaminophen [Extra Strength Non-Aspirin] 500 mg PO Q4HWA PRN 12/12/16 Aspirin [Aspirin EC] 81 mg PO DAILY 12/12/16 Celecoxib [CeleBREX -] 200 mg PO PRN 12/12/16 Ibuprofen [Motrin -] 400 mg PO QID PRN 12/12/16 Azithromycin [Zithromax 250mg Tablets -] 500 mg PO DAILY #10 tablet MDD 2 Ferrous Sulfate [Feosol] 325 mg PO DAILY #30 tab 12/14/16 Guaifenesin [Robitussin -] 10 ml PO Q4H PRN #1 bottle 12/14/16 Losartan Potassium [Cozaar -] 100 mg PO DAILY tablet 12/14/16 Multivitamins [Multivit ([facility] Formulary)] 1 tab PO DAILY tab 12/14/16 Pantoprazole Sodium [Protonix -] 20 mg PO DAILY #30 tab 12/14/16 Polyethylene Glycol 3350 [Miralax 119 gm Btl -] 17 gm PO DAILY #1 bottle Cephalexin Monohydrate [Keflex -] 500 mg PO BID #14 capsule 07/17/18 Sulfamethoxazole/Trimethoprim [Bactrim Ds -] 1 tab PO BID #14 tablet 07/17/18 Anemia: No Asthma: No Cancer: No Cardiac Disorders: No CVA: No COPD: No CHF: No Dementia: No Diabetes: No GI Disorders: Yes (acid reflux) Disorders: No HTN: Yes Hypercholesterolemia: No Liver Disease: No Seizures: No Thyroid Disease: No - Surgical History Abdominal Surgery: No Appendectomy: No Cardiac Surgery: No Cholecystectomy: No Lung Surgery: No Neurologic Surgery: No Orthopedic Surgery: Yes (bilateral knee replacement) - Immunization History Immunization Up to Date: Yes - Psycho Social/Smoking Cessation Hx Smoking History: Never smoked Have you smoked in the past 12 months: No If you are a former smoker, when did you quit?: 1980 Hx Alcohol Use: No Drug/Substance Use Hx: No Substance Use Type: None Hx Substance Use Treatment: No Review of Systems - Review of Systems Constitutional: No: Chills, Fever HEENTM: No: Eye Pain, Blurred Vision Respiratory: No: Cough, Shortness of Breath Cardiac (ROS): Yes: Lightheadedness. No: Chest Pain ABD/GI: No: Nausea, Vomiting : No: Burning, Dysuria Musculoskeletal: Yes: Joint Pain Integumentary: No: Bruising, Change in Color Neurological: Yes: Headache, Weakness *Physical Exam - Vital Signs Last Vital Signs Temp Pulse Resp BP Pulse Ox 98.3 F 92 H 18 159/70 97 04/29/19 10:03 04/29/19 10:03 04/29/19 10:03 04/29/19 10:03 04/29/19 10:03 ED Treatment Course - LABORATORY CBC & Chemistry Diagram: 04/29/19 12:00 04/29/19 12:00 - RADIOLOGY Radiology Studies Ordered: Category Date Time Status HEAD CT WITHOUT CONTRAST [CT] Stat CT Scan 04/29/19 11:31 Ordered Medical Decision Making - Medical Decision Making 04/29/19 13:05 79y/o F hx of HTN. migraines, hiatal hernia, presents to the ER with 4 days of lightheadedness accompanied by headache. Labs.: cbc, cmp, ua, ekg , troponin, lipase. Imaging: Head CT w/o contrast. Meds: 1000cc NS, Tylenol, Reglan, Benadryl, pepcid 04/29/19 13:[address] pending 04/29/19 14:[address] w/o contrast no acute intracranial pathology microvascular ischemic changes. no mass lesions. 04/29/19 15:53 EKG: normal sinus rhythm normal EKG Discharge - Discharge Information Problems reviewed: Yes Clinical Impression/Diagnosis: Headache Qualifiers: Headache type: unspecified Headache chronicity pattern: unspecified pattern Intractability: not intractable Qualified Code(s): R51 - Headache Condition: Stable Disposition: HOME - Admission No - Follow up/Referral - Patient Discharge Instructions Patient Printed Discharge Instructions: DI for Headache Additional Instructions: You were seen in the ER for headache You were given medications for relief. Follow up with your primary care provider RETURN TO THE ER - If you experience worsening headaches, fevers chills, blurry vision Print Language: AFGHAN - Post Discharge Activity
--- NOTE | 2019-04-29 12:11 | EKG ---
Test Reason : Blood Pressure : / mmHG Vent. Rate : 071 BPM Atrial Rate : 071 BPM P-R Int : 124 ms QRS Dur : 076 ms QT Int : 390 ms P-R-T Axes : 058 039 044 degrees QTc Int : 423 ms NORMAL SINUS RHYTHM NORMAL ECG WHEN COMPARED WITH ECG OF 12-DEC-2016 16:13, NO SIGNIFICANT CHANGE WAS FOUND Confirmed by MD Irene Daniel ([id number]) on 04/29/2019 12:11:18 PM Referred By: Confirmed By:Campos Irene MD
[2019-04-29 12:28] LABS: BASO % 1.2 % (0-2.0); EOS % 2.8 % (0-4.5); HEMATOCRIT 30.8 % (32.4-45.2); LYMPH % 21.9 % (8-40); MCH 29.2 pg (25.7-33.7); MCHC 32.5 g/dl (32.0-36.0); MEAN CELL VOLUME 89.6 fl (80-96); MONO % 9.4 % (3.8-10.2); NEUT % 64.7 % (42.8-82.8); PLATELET COUNT 246 K/MM3 (134-434); RBC 3.43 M/mm3 (3.60-5.2); RDW 15.1 % (11.6-15.6); WHITE BLOOD COUNT 5.1 K/mm3 (4.0-10.0)
[2019-04-29 12:55] LABS: ALBUMIN 3.3 g/dl (3.4-5.0); ALK PHOS 115 U/L (45-117); ANION GAP 6 MMOL/L (8-16); BILIRUBIN,TOTAL 0.4 mg/dL (0.2-1); CALCIUM 8.8 mg/dL (8.5-10.1); CHLORIDE 97 mmol/L (98-107); CO2 31 mmol/L (21-32); CREATININE 0.7 mg/dL (0.55-1.3); GLUCOSE,RANDOM 72 mg/dL (74-106); LIPASE 103 U/L (73-393); POTASSIUM 4.5 mmol/L (3.5-5.1); SGOT/AST 31 U/L (15-37); SGPT/ALT 16 U/L (13-61); SODIUM 134 mmol/L (136-145); TOT PROT 6.8 g/dl (6.4-8.2)
== END 2019-04-29 15:35 | disposition home or self-care (01) ==
LOC: JER 10:00
PROC: 3E033NZ Introduction of Analgesics, Hypnotics, Sedatives into Peripheral Vein, Percutaneous Approach (ICD-10-PCS; principal; 2019-04-29)
PROC: 3E033GC Introduction of Other Therapeutic Substance into Peripheral Vein, Percutaneous Approach (ICD-10-PCS; 2019-04-29)
PROC: 3E033GC Introduction of Other Therapeutic Substance into Peripheral Vein, Percutaneous Approach (ICD-10-PCS; 2019-04-29)
PROC: 3E033GC Introduction of Other Therapeutic Substance into Peripheral Vein, Percutaneous Approach (ICD-10-PCS; 2019-04-29)
DX: R51 Headache (principal); I10 Essential (primary) hypertension; K44.9 Diaphragmatic hernia without obstruction or gangrene; G43.909 Migraine, unspecified, not intractable, without status migrainosus; Z88.5 Allergy status to narcotic agent
CPT/HCPCS: 36415; 70450-TC; 80053; 83690; 84484; 85025; 93005; 93010; 96365; 96375; 99283-25; J0131

== ENCOUNTER 2024-10-09 12:38 | Inpatient (IN) | payer OTHER ==
[2024-10-09 12:53] VITALS: RESP 18
[2024-10-09 15:43] LABS: HEMATOCRIT 23.3 % (34.1-44.9); HEMOGLOBIN 6.5 g/dL (11.2-15.7); MCHC 27.9 g/dl (32.2-35.5); MEAN CELL VOLUME 76.6 fl (79.4-94.8); MEAN PLT VOLUME 9.4 fl (9.4-12.3); PLATELET COUNT 315 x10^3/uL (182-369); RDW 17.6 % (12.5-17.0)
[2024-10-09 16:10] LABS: POTASSIUM 4.1 mmol/L (3.5-5.1)
[2024-10-09 16:13] LABS: CALCIUM 9.1 mg/dL (8.5-10.1)
[2024-10-09 16:14] LABS: MAGNESIUM 1.8 mg/dL (1.8-2.4)
[2024-10-09 16:16] LABS: CREATININE 0.7 mg/dL (0.55-1.3)
[2024-10-09 16:18] LABS: BILIRUBIN,TOTAL 0.4 mg/dL (0.2-1)
[2024-10-09] MEDS ORDERED: ALBUTEROL SO4 0.083% IH SOL 2.5 MG/3 ML VIAL.NEB. NEB PRN (17:21)
[2024-10-09 17:31] LABS: EPI CELLS 3 /uL (0-25.1); HYALINE CASTS 0 /uL (0-3.1); PH,URINE 8.5 (5.0-8.0); URINE APPEARANCE CLEAR; URINE BACTERIA >9,000 /uL (0-1359); URINE BILIRUBIN NEGATIVE (NEGATIVE); URINE COLOR YELLOW; URINE GLUCOSE (UA) NEGATIVE (NEGATIVE); URINE KETONE NEGATIVE (NEGATIVE); URINE LEUK ESTERASE 3+ (NEGATIVE); URINE NITRITE NEGATIVE (NEGATIVE); URINE PROTEIN NEGATIVE (NEGATIVE); URINE RBC 15 /uL (0-23.9); URINE UROBILINOGEN 0.2 mg/dL (0.2-1.0); URINE WBC 2 /uL (0-25.8)
[2024-10-09] MEDS ORDERED: PANTOPRAZOLE SODIUM 40 MG VIAL ONE (18:05)
[2024-10-09] MEDS: PANTOPRAZOLE SODIUM 40 MG VIAL IVPUSH SCH (18:14)
[2024-10-09] MEDS: levETIRAcetam 500 MG TABLET (FP) PO SCH (21:55)
[2024-10-09] MEDS: ACETAMINOPHEN 500 MG TABLET (FP) PO PRN (21:55)
[2024-10-09] MEDS: guaiFENesin 200 MG/10 ML 10 ML UNIT-DOSE CUPS PO PRN (21:55)
[2024-10-09] MEDS: IRON SUCROSE INJECTION 200 MG in SODIUM CHLORIDE 100 ML IVPB ONE (22:02)
[2024-10-10] MEDS: levETIRAcetam 250 MG TABLET PO SCH (06:31)
[2024-10-10 10:13] LABS: ABSOLUTE IMMATURE GRANULOCYTES 0.01 x10^3/uL (0.0-0.031); BASOPHILS # 0.02 x10^3/uL (0.01-0.08); EOSINOPHIL % 3.4 % (0.7-5.8); EOSINOPHILS # 0.19 x10^3/uL (0.04-0.36); HEMATOCRIT 27.3 % (34.1-44.9); HEMOGLOBIN 7.7 g/dL (11.2-15.7); MCHC 28.2 g/dl (32.2-35.5); MEAN CELL VOLUME 81.3 fl (79.4-94.8); MONOCYTE # 0.46 x10^3/uL (0.24-0.86); MONOCYTE % 8.3 % (4.7-12.5); RDW 17.6 % (12.5-17.0)
[2024-10-10 10:37] LABS: POTASSIUM 5.1 mmol/L (3.5-5.1)
[2024-10-10 10:39] LABS: BLOOD UREA NITROGEN 10.1 mg/dL (7-18); CALCIUM 9.3 mg/dL (8.5-10.1)
[2024-10-10 10:42] LABS: CREATININE 0.7 mg/dL (0.55-1.3)
[2024-10-10] MEDS: LOSARTAN POTASSIUM 50 MG TABLET PO SCH (11:03)
[2024-10-10] MEDS: traZODone HCL 50 MG TABLET (FP) PO SCH (11:03)
[2024-10-10] MEDS: DONEPEZIL HCL 5 MG TABLET (FP) PO SCH (11:03)
[2024-10-10] MEDS: guaiFENesin/D-METHORPHAN HB 10 ML UNIT-DOSE CUPS PO PRN (11:26)
[2024-10-10 21:52] VITALS: BP 149/87; PULSE 86; TEMP 98.2
[2024-10-11 09:20] LABS: HEMATOCRIT 30.4 % (34.1-44.9); HEMOGLOBIN 8.8 g/dL (11.2-15.7); MCHC 28.9 g/dl (32.2-35.5); MEAN CELL VOLUME 77.7 fl (79.4-94.8); MEAN PLT VOLUME 9.3 fl (9.4-12.3); PLATELET COUNT 328 x10^3/uL (182-369); RDW 17.8 % (12.5-17.0)
[2024-10-11 10:10] LABS: ALBUMIN 2.9 g/dl (3.4-5.0); BLOOD UREA NITROGEN 7.9 mg/dL (7-18); MAGNESIUM 1.7 mg/dL (1.8-2.4)
[2024-10-11 10:13] LABS: CREATININE 0.7 mg/dL (0.55-1.3); PHOSPHOROUS 3.7 mg/dL (2.5-4.9)
[2024-10-11 10:14] LABS: BILIRUBIN,TOTAL 0.7 mg/dL (0.2-1); TOT PROT 6.7 g/dl (6.4-8.2)
[2024-10-11] MEDS: ONDANSETRON 4 MG/2 ML VIAL IVPUSH ONE (10:24)
[2024-10-11 14:06] VITALS: BMI 38.5
[2024-10-11] MEDS ORDERED: DONEPEZIL HCL 5 MG TABLET (FP) PO SCH (22:00)
== END 2024-10-11 13:45 | disposition home or self-care (01) | DRG 812 ==
LOC: JER 12:38 → JERBED 16:01 → J5S 18:34 → OBSVTOIN 20:07
PROVIDERS: ADMIT Internal Medicine; ATTEND Internal Medicine
PROC: 30233N1 Transfusion of Nonautologous Red Blood Cells into Peripheral Vein, Percutaneous Approach (ICD-10-PCS; principal; 2024-10-09)
DX: D64.9 Anemia, unspecified (principal); I10 Essential (primary) hypertension; G40.909 Epilepsy, unspecified, not intractable, without status epilepticus; R55 Syncope and collapse; F03.90 Unspecified dementia, unspecified severity, without behavioral disturbance, psychotic disturbance, mood disturbance, and anxiety; R05.9 Cough, unspecified
CPT/HCPCS: 36415; 36430; 70450-TC; 71045-TC-FY; 74018-TC-FY; 80048; 80053; 81003; 82272; 82728; 82962; 83540; 83550; 83735; 84100; 84484; 85025; 85027; 86850; 86900; 86901; 86922; 87086; 87186; 93005; 93010; 97116-GP; 97161-GP; 99285-25; G0378; J1756; P9058